=== PATIENT | female | born 1980 ===

== ENCOUNTER 2017-11-08 13:09 | Emergency (ER) | payer OTHER ==
[2017-11-08 13:42] VITALS: BP 109/73; PULSE 81; RESP 20; TEMP 99.5; O2SAT 99
[2017-11-08 14:15] LABS: HCG,QUALITATIVE URINE NEGATIVE (NEGATIVE)
[2017-11-08 14:16] LABS: SQUAMOUS EPITHIAL 5 /hpf (0-5); URINE BACTERIA RARE (<OCC); URINE BILIRUBIN NEGATIVE (NEGATIVE); URINE BLOOD 3+ (NEGATIVE); URINE CLARITY Hazy (Clear); URINE COLOR Yellow (YELLOW); URINE GLUCOSE (UA) NORMAL (Normal); URINE LEUKOCYTE ESTERASE 3+ Leu/uL (Negative); URINE PROTEIN 2+ mg/dL (NEGATIVE); URINE UROBILINOGEN NORMAL mg/dL (0.2-1.0); WBC CLUMPS MANY /hpf
--- NOTE | 2017-11-08 15:04 | C.PDOC ---
History Of Present Illness 36-year-old female, presents to the emergency department with complaints of 3-4 day duration of dysuria, that is associated with urinary frequency and hematuria. Patient denies fever, vomiting, diarrhea. Time Seen by Provider: 11/08/17 13:51 Chief Complaint (Nursing): Female Genitourinary History Per: Patient History/Exam Limitations: no limitations Onset/Duration Of Symptoms: Days Past Medical History Reviewed: Historical Data, Nursing Documentation, Vital Signs Vital Signs: Last Vital Signs Temp 99.5 F 11/08/17 13:39 Pulse 81 11/08/17 13:39 Resp 20 11/08/17 13:39 BP 109/73 11/08/17 13:39 Pulse Ox 99 11/08/17 19:00 Surgical History: Cholecystectomy (2012) Family History: States: No Known Family Hx - Social History Hx Alcohol Use: No Hx Substance Use: No Review Of Systems Constitutional: Negative for: Fever, Chills Respiratory: Negative for: Shortness of Breath Gastrointestinal: Negative for: Vomiting, Abdominal Pain, Diarrhea Genitourinary: Positive for: Dysuria, Frequency, Hematuria Skin: Negative for: Rash Neurological: Negative for: Weakness, Numbness Physical Exam - Physical Exam Appears: Non-toxic, No Acute Distress Skin: Warm, Dry, No Rash Head: Normacephalic Eye(s): bilateral: PERRL, EOMI Nose: Normal Oral Mucosa: Moist Lips: Normal Appearing Neck: Normal ROM Cardiovascular: Rhythm Regular, No Murmur Respiratory: Normal Breath Sounds, No Accessory Muscle Use Gastrointestinal/Abdominal: Soft, Tenderness (mild, suprapubic), No Guarding, No Rebound Back: No CVA Tenderness Extremity: Normal ROM, No Deformity, No Swelling Neurological/Psych: Oriented x3, Normal Speech ED Course And Treatment O2 Sat by Pulse Oximetry: 99 (RA) Pulse Ox Interpretation: Normal Disposition - Disposition Referrals: [facility] [Outside] Disposition: HOME/ ROUTINE Disposition Time: 15:01 Condition: GOOD Additional Instructions: Follow up with the medical doctor within 1-2 days. Return if worsened. Prescriptions: Ciprofloxacin [Cipro] 1 tab PO BID #14 tab Phenazopyridine HCl [Pyridium] 200 mg PO TID #7 tablet Instructions: Urinary Tract Infections in Adults Forms: [employer] (H[place] Konger) Print Language: LIBERIAN - Clinical Impression Clinical Impression: UTI (urinary tract infection) - Scribe Statement The provider has reviewed the documentation as recorded by the Scribe (Quincy Tan) All medical record entries made by the Scribe were at my direction and personally dictated by me. I have reviewed the chart and agree that the record accurately reflects my personal performance of the history, physical exam, medical decision making, and the department course for this patient. I have also personally directed, reviewed, and agree with the discharge instructions and disposition.
== END 2017-11-08 15:20 | disposition home or self-care (01) ==
LOC: C.ER 13:09
DX: N39.0 Urinary tract infection, site not specified (principal)